=== PATIENT | female | born 1930 | race Caucasian/White ===

== ENCOUNTER 2017-01-24 10:06 | Inpatient (IN) | payer MEDICARE, OTHER ==
[~2017-01-24] VITALS: Ht 160 cm; Wt 63.5 kg
[2017-01-24 10:14] VITALS: BP_SYST 135
[2017-01-24] MEDS ORDERED: ONDANSETRON HCL 4 MG/2 ML VIAL IVP ONE (10:30)
[2017-01-24 10:49] LABS: BASOPHILS % (AUTO) 0.5 % (0.0-2.0); EOSINOPHILS # (AUTO) 0.2 K/uL (0.0-0.4); EOSINOPHILS % (AUTO) 2.1 % (0.0-4.0); HEMATOCRIT 32.6 % (36-48); HEMOGLOBIN 10.8 g/dL (12.0-16.0); LYMPHOCYTES % (AUTO) 11.3 % (20.5-51.5); MEAN CORPUSCULAR HEMOGLOBIN 30 pg (27-31); MEAN CORPUSCULAR HGB CONC 33 % (32-36); MEAN CORPUSCULAR VOLUME 91 fL (79.0-98.0); MONOCYTES # (AUTO) 0.3 K/uL (0.0-1.0); MONOCYTES % (AUTO) 3.9 % (1.7-9.3); NEUTROPHILS % (AUTO) 82.2 % (40.0-70.0); PLATELET COUNT (AUTO) 189 K/uL (130-430); RED BLOOD CELL COUNT(AUTO) 3.57 MIL/uL (4.2-6.2); RED CELL DISTRIBUTION WIDTH 14.1 % (9.0-15.0); WHITE BLOOD COUNT (AUTO) 8.5 K/uL (4.8-10.8)
[2017-01-24] MEDS ORDERED: NACL 0.9% 1,000 ML IV ONE (11:00)
[2017-01-24 11:02] LABS: ANION GAP 11 (5-15); CALCIUM 9.2 mg/dL (8.4-11.0); CHLORIDE 111 mmol/L (98-107); CREATININE 4.63 mg/dL (0.55-1.30); GLUCOSE 123 mg/dL (70-99); POTASSIUM 4.5 mmol/L (3.5-5.1); SODIUM SERUM 141 mmol/L (136-145); UREA NITROGEN, BLOOD 55 mg/dL (8-21)
[2017-01-24 11:07] LABS: ALANINE AMINOTRANSFERASE 11 U/L (12-78); ALBUMIN 3.5 g/dL (3.4-4.8); ASPARTATE AMINOTRANSFERASE 15 U/L (10-37); TOTAL BILIRUBIN 0.4 mg/dL (0.0-1.0)
[2017-01-24 11:28] LABS: BILIRUBIN,URINE NEGATIVE (NEGATIVE); BLOOD, URINE 1+ (NEGATIVE); CLARITY/URINE CLEAR (CLEAR); COLOR,URINE YELLOW (YELLOW); GLUCOSE,URINE NEGATIVE (NEGATIVE); KETONES,URINE NEGATIVE (NEGATIVE); LEUKOCYTE ESTERASE ,URINE TRACE (NEGATIVE); NITRITE, URINE NEGATIVE (NEGATIVE); PH,URINE 5.5 (5.0-8.0); PROTEIN URINE 1+ (NEGATIVE); UROBILINOGEN,URINE 0.2 (0.2-1.0)
[2017-01-24 11:32] LABS: BACTERIA,URINE FEW /HPF (None Seen); FINE GRANULAR CASTS,URINE 0-10 /LPF (None Seen); RBC,URINE 0-3 /HPF (0-3); WBC,URINE 0-3 /HPF (0-3)
[2017-01-24] MEDS ORDERED: OXYB10TA11 PO (11:54)
[2017-01-24] MEDS ORDERED: CHOL200041 PO (11:54)
[2017-01-24] MEDS ORDERED: LEVO100T9 PO (11:54)
[2017-01-24] MEDS ORDERED: GLUC100017 PO (11:54)
[2017-01-24] MEDS ORDERED: CALC0.258 PO (11:54)
[2017-01-24] MEDS ORDERED: ASPI81TA2 PO (11:54)
[2017-01-24] MEDS ORDERED: DILT180T9 PO (11:54)
[2017-01-24] MEDS ORDERED: FURO-149 PO (11:54)
[2017-01-24] MEDS ORDERED: [UNRECOGNIZED DRUG - OTHER] PO (11:54)
[2017-01-24 12:26] VITALS: BP_SYST 128
[2017-01-24 12:27] VITALS: BP_SYST 128
[2017-01-24 15:27] VITALS: BP_SYST 116
[2017-01-24 19:30] VITALS: BP_SYST 121
[2017-01-25 00:35] VITALS: BP_SYST 132
[2017-01-25 03:14] VITALS: BP_SYST 132
[2017-01-25 07:12] LABS: BASOPHILS % (AUTO) 0.6 % (0.0-2.0); EOSINOPHILS # (AUTO) 0.4 K/uL (0.0-0.4); EOSINOPHILS % (AUTO) 5.4 % (0.0-4.0); HEMOGLOBIN 10.5 g/dL (12.0-16.0); LYMPHOCYTES # (AUTO) 1.7 K/uL (1.0-5.5); LYMPHOCYTES % (AUTO) 22.1 % (20.5-51.5); MEAN CORPUSCULAR HEMOGLOBIN 30 pg (27-31); MEAN CORPUSCULAR HGB CONC 33 % (32-36); MEAN CORPUSCULAR VOLUME 90 fL (79.0-98.0); MONOCYTES # (AUTO) 0.5 K/uL (0.0-1.0); MONOCYTES % (AUTO) 7.1 % (1.7-9.3); NEUTROPHILS % (AUTO) 64.8 % (40.0-70.0); PLATELET COUNT (AUTO) 180 K/uL (130-430); RED BLOOD CELL COUNT(AUTO) 3.57 MIL/uL (4.2-6.2); RED CELL DISTRIBUTION WIDTH 13.9 % (9.0-15.0); WHITE BLOOD COUNT (AUTO) 7.6 K/uL (4.8-10.8)
[2017-01-25 07:43] LABS: ALANINE AMINOTRANSFERASE 12 U/L (12-78); ANION GAP 6 (5-15); ASPARTATE AMINOTRANSFERASE 14 U/L (10-37); CALCIUM 8.8 mg/dL (8.4-11.0); CHLORIDE 110 mmol/L (98-107); CREATININE 3.04 mg/dL (0.55-1.30); GLUCOSE 95 mg/dL (70-99); POTASSIUM 3.5 mmol/L (3.5-5.1); SODIUM SERUM 144 mmol/L (136-145); TOTAL BILIRUBIN 0.4 mg/dL (0.0-1.0); UREA NITROGEN, BLOOD 27 mg/dL (8-21)
[2017-01-25 08:00] VITALS: BP_SYST 128
[2017-01-25 12:17] VITALS: BP_SYST 122
== END 2017-01-25 14:30 | disposition home or self-care (01) | DRG 682 ==
LOC: SED 10:06 → STU 11:59
PROVIDERS: ADMIT Internal Medicine Hospice and Palliative Medicine; ATTEND Internal Medicine Hospice and Palliative Medicine
PROC: 5A1D00Z (ICD-10-PCS; principal; 2017-01-24)
DX: I12.0 Hypertensive chronic kidney disease with stage 5 chronic kidney disease or end stage renal disease (principal); N18.6 End stage renal disease; Z66 Do not resuscitate; E03.9 Hypothyroidism, unspecified; Z85.42 Personal history of malignant neoplasm of other parts of uterus; Z79.82 Long term (current) use of aspirin; Z79.899 Other long term (current) drug therapy
CPT/HCPCS: 36415; 70450-TC; 71010; 80053; 81000-TC; 83880; 84484; 85025; 86706; 86803; 87081; 87340; 90935; 93005; 96361; 96374; 99285; J2405; J7030

== ENCOUNTER 2017-09-18 05:01 | Inpatient (IN) | payer OTHER ==
[~2017-09-18] VITALS: Ht 160 cm; Wt 77.1 kg
[2017-09-18 05:01] VITALS: BP_SYST 119
[~2017-09-18 05:01] MED LIST: ASPI81TA2 PO; CALC0.258 PO; CHOL200041 PO; DILT180T9 PO; FURO-149 PO; GLUC100017 PO; LEVO100T9 PO; OXYB10TA11 PO; [UNRECOGNIZED DRUG - OTHER] PO
[2017-09-18] MEDS ORDERED: NACL 0.9% 1,000 ML IV ONE (05:15)
[2017-09-18 05:30] LABS: BASOPHILS # (AUTO) 0.1 K/uL (0.0-0.2); BASOPHILS % (AUTO) 0.8 % (0.0-2.0); EOSINOPHILS # (AUTO) 0.4 K/uL (0.0-0.4); HEMATOCRIT 29.5 % (36-48); HEMOGLOBIN 9.6 g/dL (12.0-16.0); LYMPHOCYTES # (AUTO) 1.9 K/uL (1.0-5.5); LYMPHOCYTES % (AUTO) 23.1 % (20.5-51.5); MEAN CORPUSCULAR HEMOGLOBIN 30 pg (27-31); MEAN CORPUSCULAR HGB CONC 33 % (32-36); MEAN CORPUSCULAR VOLUME 91 fL (79.0-98.0); MONOCYTES # (AUTO) 0.6 K/uL (0.0-1.0); MONOCYTES % (AUTO) 6.8 % (1.7-9.3); NEUTROPHILS # (AUTO) 5.2 K/uL (1.8-7.7); NEUTROPHILS % (AUTO) 64.3 % (40.0-70.0); PLATELET COUNT (AUTO) 190 K/uL (130-430); RED BLOOD CELL COUNT(AUTO) 3.23 MIL/uL (4.2-6.2); RED CELL DISTRIBUTION WIDTH 15.5 % (9.0-15.0); WHITE BLOOD COUNT (AUTO) 8.2 K/uL (4.8-10.8)
[2017-09-18 05:41] LABS: ANION GAP 13 (5-15); CALCIUM 8.9 mg/dL (8.4-11.0); CHLORIDE 111 mmol/L (98-107); CREATININE 3.75 mg/dL (0.55-1.30); GLUCOSE 97 mg/dL (70-99); POTASSIUM 4.6 mmol/L (3.5-5.1); SODIUM SERUM 143 mmol/L (136-145); UREA NITROGEN, BLOOD 49 mg/dL (8-21)
[2017-09-18 05:50] LABS: ALANINE AMINOTRANSFERASE 75 U/L (12-78); ALBUMIN 3.2 g/dL (3.4-4.8); ASPARTATE AMINOTRANSFERASE 95 U/L (10-37); TOTAL BILIRUBIN 0.2 mg/dL (0.0-1.0)
[2017-09-18 07:36] VITALS: BP_SYST 157
[2017-09-18] MEDS ORDERED: GLUCOSAMINE SULFATE 500 MG PO SCH (09:00)
[2017-09-18] MEDS ORDERED: DILTIAZEM HCL 180 MG CAP.SR.24H PO SCH (09:00)
[2017-09-18] MEDS: LEVOTHYROXINE SODIUM 0.1 MG TABLET PO SCH (09:30)
[2017-09-18] MEDS: FUROSEMIDE 40 MG TABLET PO SCH (09:30)
[2017-09-18] MEDS: ASPIRIN 81 MG TAB.CHEW PO SCH (09:31)
[2017-09-18 09:51] LABS: BILIRUBIN,URINE NEGATIVE (NEGATIVE); CLARITY/URINE CLEAR (CLEAR); COLOR,URINE YELLOW (YELLOW); GLUCOSE,URINE NEGATIVE (NEGATIVE); KETONES,URINE NEGATIVE (NEGATIVE); LEUKOCYTE ESTERASE ,URINE 1+ (NEGATIVE); NITRITE, URINE NEGATIVE (NEGATIVE); PROTEIN URINE 1+ (NEGATIVE); UROBILINOGEN,URINE 0.2 (0.2-1.0)
[2017-09-18 09:57] LABS: BLOOD, URINE TRACE (NEGATIVE)
[2017-09-18 10:02] LABS: BACTERIA,URINE MODERATE /HPF (None Seen); MUCUS,URINE 1+ /LPF (None Seen); RBC,URINE 0-3 /HPF (0-3)
[2017-09-18] MEDS ORDERED: ATORVASTATIN 20 MG TABLET PO ONE (11:15)
[2017-09-18 11:58] VITALS: BP_SYST 114
[2017-09-18 16:19] VITALS: BP_SYST 127
[2017-09-18 20:00] VITALS: BP_SYST 107
[2017-09-18] MEDS: OXYBUTYNIN CHLORIDE 5 MG TABLET PO SCH (20:42)
[2017-09-19 00:11] VITALS: BP_SYST 127
[2017-09-19] MEDS: LEVOTHYROXINE SODIUM 0.1 MG TABLET PO SCH (06:30)
[2017-09-19 06:39] LABS: ANION GAP 11 (5-15); CALCIUM 8.8 mg/dL (8.4-11.0); CHLORIDE 113 mmol/L (98-107); CREATININE 3.72 mg/dL (0.55-1.30); GLUCOSE 89 mg/dL (70-99); POTASSIUM 4.5 mmol/L (3.5-5.1); SODIUM SERUM 142 mmol/L (136-145); UREA NITROGEN, BLOOD 45 mg/dL (8-21)
[2017-09-19 07:01] LABS: BASOPHILS % (AUTO) 0.4 % (0.0-2.0); EOSINOPHILS # (AUTO) 0.4 K/uL (0.0-0.4); EOSINOPHILS % (AUTO) 5.5 % (0.0-4.0); HEMATOCRIT 26.6 % (36-48); HEMOGLOBIN 8.9 g/dL (12.0-16.0); LYMPHOCYTES # (AUTO) 1.9 K/uL (1.0-5.5); LYMPHOCYTES % (AUTO) 24.8 % (20.5-51.5); MEAN CORPUSCULAR HEMOGLOBIN 30 pg (27-31); MEAN CORPUSCULAR HGB CONC 33 % (32-36); MEAN CORPUSCULAR VOLUME 91 fL (79.0-98.0); MONOCYTES # (AUTO) 0.5 K/uL (0.0-1.0); MONOCYTES % (AUTO) 7.2 % (1.7-9.3); NEUTROPHILS # (AUTO) 4.7 K/uL (1.8-7.7); NEUTROPHILS % (AUTO) 62.1 % (40.0-70.0); PLATELET COUNT (AUTO) 154 K/uL (130-430); RED BLOOD CELL COUNT(AUTO) 2.92 MIL/uL (4.2-6.2); RED CELL DISTRIBUTION WIDTH 15.9 % (9.0-15.0); WHITE BLOOD COUNT (AUTO) 7.5 K/uL (4.8-10.8)
[2017-09-19 08:24] VITALS: BP_SYST 127
[2017-09-19] MEDS: OXYBUTYNIN CHLORIDE 5 MG TABLET PO SCH (08:32)
[2017-09-19] MEDS: ASPIRIN 81 MG TAB.CHEW PO SCH (08:33)
[2017-09-19] MEDS: FUROSEMIDE 40 MG TABLET PO SCH (08:33)
[2017-09-19] MEDS ORDERED: ATORVASTATIN 20 MG TABLET PO SCH (09:00)
[2017-09-19] MEDS ORDERED: NIFEDIPINE 60 MG TABLET.SA (PROCARDIA XL 60 MG) PO SCH (09:00)
[2017-09-19 11:34] VITALS: BP_SYST 97
== END 2017-09-19 12:20 | disposition home or self-care (01) | DRG 392 ==
LOC: SED 05:01 → STU 07:08
PROVIDERS: ADMIT Internal Medicine Hospice and Palliative Medicine; ATTEND Internal Medicine Hospice and Palliative Medicine
DX: K21.9 Gastro-esophageal reflux disease without esophagitis (principal); I12.0 Hypertensive chronic kidney disease with stage 5 chronic kidney disease or end stage renal disease; D63.1 Anemia in chronic kidney disease; N18.5 Chronic kidney disease, stage 5; N39.0 Urinary tract infection, site not specified; R00.1 Bradycardia, unspecified; E78.5 Hyperlipidemia, unspecified; R74.0 Nonspecific elevation of levels of transaminase and lactic acid dehydrogenase [LDH]; Z85.42 Personal history of malignant neoplasm of other parts of uterus; Z88.1 Allergy status to other antibiotic agents; Z79.899 Other long term (current) drug therapy; Z79.82 Long term (current) use of aspirin; Z90.49 Acquired absence of other specified parts of digestive tract
CPT/HCPCS: 36415; 71045; 80048; 80053; 81000-TC; 83880; 84484; 85025; 87086; 87186-TC; 93005; 93306; 99285

== ENCOUNTER 2018-06-22 21:45 | Emergency (ER) | payer BC, OTHER ==
[~2018-06-22] VITALS: Ht 160 cm; Wt 75.3 kg
[~2018-06-22 21:45] MED LIST changes: +ASPI-1155 PO; -ASPI81TA2 PO
[2018-06-22 21:49] VITALS: BP_SYST 154
[2018-06-22] MEDS ORDERED: LIDOCAINE 2%, 20 ML MDV INJ ONE (22:45)
[2018-06-22] MEDS ORDERED: DIPH-TET-PERTUS Vaccine 0.5 ML VIAL (ADACEL) I.M. ONE (22:45)
[2018-06-22] MEDS ORDERED: BACITRACIN 1 GM OINT TP ONE (23:25)
[2018-06-22 23:30] VITALS: BP_SYST 140
== END 2018-06-22 23:30 | disposition home or self-care (01) ==
LOC: SED 21:45
DX: S01.112A Laceration without foreign body of left eyelid and periocular area, initial encounter (principal); I10 Essential (primary) hypertension; Z88.1 Allergy status to other antibiotic agents; Z79.899 Other long term (current) drug therapy; W18.09XA Striking against other object with subsequent fall, initial encounter; Y93.89 Activity, other specified; Y92.89 Other specified places as the place of occurrence of the external cause; Y99.8 Other external cause status
CPT/HCPCS: 12013; 70450; 70486; 90471; 90715; 99284; J2001